=== PATIENT | female | born 1980 | race Two or more races ===

== ENCOUNTER 2021-05-28 09:27 | Emergency (ER) | payer OTHER ==
[~2021-05-28] VITALS: Ht 157.5 cm; Wt 74.4 kg
[2021-05-28 10:42] VITALS: BP 152/62
[2021-05-28] MEDS ORDERED: AMOX400S53 PO (12:20)
== END 2021-05-28 12:26 | disposition home or self-care (01) ==
LOC: ER 09:27
DX: H66.92 Otitis media, unspecified, left ear (principal); G43.909 Migraine, unspecified, not intractable, without status migrainosus; Z20.822 Contact with and (suspected) exposure to COVID-19; Z79.2 Long term (current) use of antibiotics
CPT/HCPCS: 36415; 87426